=== PATIENT | female | born 1985 | race Caucasian/White ===

== ENCOUNTER 2023-08-17 11:28 | Day surgery (SDC) | payer MEDICAID, SELFPAY ==
[2023-08-17] VITALS (14 sets, daily range): BP systolic 99–133; BP diastolic 39–77; PULSE 69–83; RESP 10–26; TEMP 36.5–37.2; O2SAT 94–100; BMI 44.8
--- NOTE | 2023-08-17 11:48 | W.ED.GENAD ---
Discharge Plan Disposition Condition: Stable Discharge Details Chief Complaint: ForeignBody Attending Provider: Paz Guevara Primary Care Provider: Unknown,Unknown ED Provider: Marino Heck Discharge Instructions Activity:: Activity as Tolerated Diet:: As Tolerated Discharge Orders Discharge Orders: Discharge Order (Routine); Ordered 08/17/23 Ordered By: Paz Guevara Discharge Data Discharge Date/Time-TO BE ENTERED AT DEPARTURE: 08/17/23 13:15 Medical Decision Making 37yo female here after accidentally swallowing a toothppick with sensation of foreign body in her throat and difficulty speaking. I spoke with Dr. Guevara, stamps or coins salesperson general surgeon, discussed ED presentation and course. She will admit the patient to OR. Lab Data Lab results reviewed: Yes I reviewed the patient's lab results. Labs: Laboratory Tests Range/Units 08/17/23 11:52 WBC (4.4-10.8) 10^3/uL 9.26 RBC (3.93-5.22) 10^6/uL 5.38 H Hgb (11.2-15.7) g/dL 11.5 Hct (36.0-46.0) % 38.3 MCV (80-95) fL 71 L MCH (27.0-33.0) pg 21.4 L MCHC (32.0-36.0) % 30.0 L RDW (11.7-14.6) % 20.4 H Plt Count (130-400) 10^3/uL 398 MPV (8.0-11.0) fL 8.8 Immature Gran % 0.3 Neutrophils % 64.0 Lymphocytes % 29.9 Monocytes % 5.6 Eosinophils % 0.0 Basophils % 0.2 Nucleated RBC % (0.0-0.3) % 0.0 Absolute Neutrophils (1.2-6.7) 10^3/uL 5.92 Absolute Lymphocytes (1.2-3.4) 10^3/uL 2.77 Absolute Monocytes (0.1-0.8) 10^3/uL 0.52 Absolute Eosinophils (0.0-0.7) 10^3/uL 0.00 Absolute Basophils (0.0-0.2) 10^3/uL 0.02 RBC Morphology See Below Anisocytosis 2+ Microcytosis 2+ Sodium (136-145) mmol/L 139 Potassium (3.5-5.1) mmol/L 4.0 Chloride (98-107) mmol/L 104 Carbon Dioxide (21.0-32.0) mmol/L 27.9 Anion Gap (3-11) mmol/L 7.1 BUN (7-18) mg/dL 9 Creatinine (0.55-1.02) mg/dL 0.9 Est GFR (CKD-EPI 2020) (mL/min/1.73m2) 85.50 Glucose (74-106) mg/dL 87 Calcium (8.5-10.1) mg/dL 9.3 Total Bilirubin (0.2-1.0) mg/dL 0.2 AST (15-37) U/L 16 ALT (14-59) U/L 38 Alkaline Phosphatase (46-116) U/L 141 H Total Protein (6.4-8.2) g/dL 8.1 Albumin (3.4-5.0) g/dL 3.7 Serum HCG, Qual Negative HPI General Mode of arrival: ambulatory. Date/Time Provider Initiated Documentation: 08/17/23 11:45. Limitations to Documentation: no limitations. Information obtained by: patient. HPI Narrative: 37yo female here with sensation of foreign body in her throat. Patient notes that she was eating a sandwich and swallowed a toothpick that was in the sandwich. She has had pain in her throat sense this occurred. She coughed up blood. She notes throat hurts and she has difficulty speaking. Related Data Allergies Allergy/AdvReac Type Severity Reaction Status Date / Time Iodinated Contrast Media Allergy Unverified 08/17/23 11:34 General Stated Complaint: ForeignBody ESMER: 2 Review of Systems ENT Ears, Nose, Mouth, and Throat: Reports as per HPI PFSH All Active Problems Esophageal foreign body (Acute) Social History Smoking/Tobacco Use Status: Never Smoking risk assessment performed?: Yes Alcohol Intake: current Alcohol Intake frequency: holidays/special occasions only Exam Const General: cooperative HENMT Mouth: moist mucous membranes Throat: posterior oropharynx normal Eyes Conjunctivae: normal conjunctivae Sclera: normal sclerae Neck Neck: trachea midline and supple Resp Auscultation: clear to auscultation bilaterally, no rales, no rhonchi and no wheezes Cardio Rate: regular rate and not tachycardic Rhythm: regular rhythm GI Palpation: soft, not firm, no guarding, no masses, not rigid and nontender Course Vital Signs Vital signs: Vital Signs Pulse 75 08/17/23 11:32 Respiratory Rate 18 08/17/23 11:32 Blood Pressure 128/77 08/17/23 11:32 Pulse Oximetry 100 08/17/23 11:32 Pulse 75 08/17/23 11:32 Respiratory Rate 18 08/17/23 11:32 Blood Pressure 128/77 08/17/23 11:32 Blood Pressure Position Sitting 08/17/23 11:32 Pulse Oximetry 100 08/17/23 11:32 Oxygen Delivery Method Room Air 08/17/23 11:32 Oxygen Flow Rate 0 08/17/23 11:32
[2023-08-17] MEDS: Lactated Ringers 1,000 ML 125 ML IV (12:00)
[2023-08-17 12:04] LABS: Abs Immature Grans 0.03 10^3/uL (0.0-0.06); Absolute Basophil Count 0.02 10^3/uL (0.0-0.2); Absolute Lymphocyte Count 2.77 10^3/uL (1.2-3.4); Absolute Monocyte Count 0.52 10^3/uL (0.1-0.8); Absolute Neutrophil Count 5.92 10^3/uL (1.2-6.7); Basophils % 0.2; HCT 38.3 % (36.0-46.0); HGB 11.5 g/dL (11.2-15.7); Immature Grans % 0.3; Lymphocytes % 29.9; MCH 21.4 pg (27.0-33.0); MCV 71 fL (80-95); MPV 8.8 fL (8.0-11.0); Monocytes % 5.6; Platelet Count 398 10^3/uL (130-400); RBC 5.38 10^6/uL (3.93-5.22); RDW 20.4 % (11.7-14.6); RDW-SD 51.1 fL; WBC 9.26 10^3/uL (4.4-10.8)
[2023-08-17 12:16] LABS: Anisocytosis 2+; Diff Comment RBC Morph Reviewed; Microcytosis 2+
[2023-08-17] MEDS: HYDROmorphone 2 MG/ML SYR 0.5 MG IVP (12:18)
[2023-08-17 12:19] LABS: ALT 38 U/L (14-59); AST 16 U/L (15-37); Albumin 3.7 g/dL (3.4-5.0); Alkaline Phosphatase 141 U/L (46-116); Anion Gap 7.1 mmol/L (3-11); BUN 9 mg/dL (7-18); Bilirubin, Total 0.2 mg/dL (0.2-1.0); CO2 27.9 mmol/L (21.0-32.0); CREATININE 0.9 mg/dL (0.55-1.02); Calcium 9.3 mg/dL (8.5-10.1); Chloride 104 mmol/L (98-107); Glucose 87 mg/dL (74-106); Sodium 139 mmol/L (136-145); Total Protein 8.1 g/dL (6.4-8.2)
--- NOTE | 2023-08-17 12:30 | ANES.PREOP_ITS ---
General Info Date of Service Date Performed: 08/17/23 Height: 5 ft 8 in Weight: 133.81 kg Body Mass Index (BMI): 44.8 Surgical Procedure: Operation Date: 08/17/23 13:05 Proposed Procedure Side Surgeon p Gastroscopy/Removal Foreign Body Paz Guevara MD Meds Allergies and Home Medications Allergies Allergy/AdvReac Type Severity Reaction Status Date / Time Iodinated Contrast Media Allergy Unverified 08/17/23 11:34 Current Visit Medications: Current Medications Generic Name Dose Route Start Last Admin Trade Name Freq PRN Reason Stop Dose Admin Ringer's Solution 1,000 mls @ 125 mls/hr 08/17/23 12:00 08/17/23 12:00 IV 125 mls/hr INFUSION LANDON Administration IV Miscellaneous Supplies 1 each 08/17/23 12:00 Iv Access-Emergency Dept IV DIRECTED LANDON Sodium Chloride 0 ml 08/17/23 11:46 Normal Saline Flush 10 Ml Syr IVP PRN PRN Vital Signs and Lab Results Vital Signs Most Recent Vital Signs in EMR: Most Recent Vital Signs Pulse Resp BP Pulse Ox 75 18 128/77 100 08/17/23 11:32 08/17/23 11:32 08/17/23 11:32 08/17/23 11:32 Lab Results 08/17/23 11:52 08/17/23 11:52 Blood Type / Crossmatch: No Data to Display Complete Blood Count: White Blood Count 9.26 10^3/uL (4.4-10.8) 08/17/23 11:52 Red Blood Count 5.38 10^6/uL (3.93-5.22) H 08/17/23 11:52 Hemoglobin 11.5 g/dL (11.2-15.7) 08/17/23 11:52 Hematocrit 38.3 % (36.0-46.0) 08/17/23 11:52 Platelet Count 398 10^3/uL (130-400) 08/17/23 11:52 Complete Metabolic Panel: Sodium 139 mmol/L (136-145) 08/17/23 11:52 Potassium 4.0 mmol/L (3.5-5.1) 08/17/23 11:52 Chloride 104 mmol/L (98-107) 08/17/23 11:52 Carbon Dioxide 27.9 mmol/L (21.0-32.0) 08/17/23 11:52 BUN 9 mg/dL (7-18) 08/17/23 11:52 Creatinine 0.9 mg/dL (0.55-1.02) 08/17/23 11:52 Est GFR (CKD-EPI 2020) 85.50 (mL/min/1.73m2) 08/17/23 11:52 Calcium 9.3 mg/dL (8.5-10.1) 08/17/23 11:52 Albumin 3.7 g/dL (3.4-5.0) 08/17/23 11:52 Glucose 87 mg/dL (74-106) 08/17/23 11:52 Liver Function Panel: Alanine Aminotransferase (ALT/SGPT) 38 U/L (14-59) 08/17/23 11: 52 Aspartate Amino Transf (AST/SGOT) 16 U/L (15-37) 08/17/23 11:52 Coagulation Panel: No Data to Display Cardiac Panel: No Data to Display Arterial Blood Gas: No Data to Display Venous Blood Gas: No Data to Display Pancreas Panel: No Data to Display Thyroid Panel: No Data to Display Infectious Disease: No Data to Display Blood Cultures: No Data to Display Toxicology Panel: No Data to Display Panel: Serum HCG, Qualitative Pending 08/17/23 11:52 Anesthesia Assessment and Plan Anesthesia History Personal History: No History of Anesthesia Complications Family History: No Family History of Anesthesia Complications Exercise Tolerance Exercise Tolerance: Metabolic Equivalents<4 Pertinent Negatives Pertinent Negatives: No Symptoms of GERD Cardiac & Pulmonary Exam Cardiac Exam: Normal S1/S2 Heart Sounds Pulmonary Exam: Clear Bilateral Breath Sounds Implantable Cardiac Device Does patient have a Pacemaker or an ICD?: No Airway Exam Known Difficult Airway: No Mallampati Class: 2 Mouth Opening: Normal (> 3cm) Thyromental Distance: Greater than 3 cm Neck Range of Motion: Full ROM Neck Circumference: Thick Teeth Condition: Normal Dentition ASA Classification ASA Score: ASA 2 Emergency Case?: Yes NPO Status NPO Status: NPO Clears >2 hours, Solids >8 hours Status Status: Pt. refuses testing, she was counseled on anesthesia risks Anesthesia Plan Resuscitation Status: Full Code Anesthesia Technique: General Anesthesia Airway Planned: Endotracheal Tube Monitors Used: Standard Monitors
[2023-08-17] MEDS: Midazolam 2 MG/2 ML VIAL 1 MG IVP (12:31)
--- NOTE | 2023-08-17 12:31 | HPE_ITS ---
Date of service: 08/17/23 Time of Service: 12:32 Assessment and Plan Assessment and plan (1) Esophageal foreign body: Status: Acute Assessment and plan: Ms. Thomas is a pleasant 37-year-old female who was eating lunch today and when she took a bite of her sandwich and swallowed she ended up swallowing the toothpick. She feels like it stuck the top of her esophagus. She did cough when she first came into the ER and coughed up a little blood. She is quite anxious. I reviewed the procedure with her in detail, I explained the possible complications. I also explained to her that if the toothpick is laying horizontally and previous piercing her esophagus I will not be able to remove it and will have to send her down to [facility] to have it removed there. Risks, benefits and complications have been reviewed. Complications include but are not limited to bleeding, pain, perforation, sore throat, aspiration, and adverse reaction to the medications. Questions were entertained and answered to their satisfaction and they wished to proceed. No guarantees were given or implied. Patient had a good understanding of the procedure when he finished our conversation and she wishes to proceed. proceed with EGD and foreign body removal History of Present Illness Consults Consult date: 08/17/23 Requesting physician: Marino Heck Narrative: Ms. Thomas is a pleasant 37-year-old female who was eating lunch and when she took a bite of her sandwich she swallowed a toothpick. She feels like it is lodged in her throat. It hurts. She did cough a little bit when she first came to the emergency department and coughed up a little blood. She is overweight but otherwise healthy. She does not take any medications. Review of Systems Constitutional Constitutional: Denies fatigue, Denies fever(s), Denies headache(s) and Denies weight loss Eyes Eyes: Denies blurry vision and Denies change in vision ENT Ears, Nose, Mouth, and Throat: Reports dysphagia and Denies headache(s) Cardiovascular Cardiovascular: Denies chest pain, Denies chest pain at rest, Denies irregular heart rhythm, Denies palpitations, Denies dyspnea and Denies dyspnea on exertion Respiratory Respiratory: Denies cough, Denies dyspnea and Denies dyspnea on exertion Gastrointestinal Gastrointestinal: Reports as per HPI, Reports system reviewed and no additional complaints, except as documented and Reports dysphagia Genitourinary Genitourinary: Reports system reviewed and no additional complaints, except as documented Musculoskeletal Musculoskeletal: Reports system reviewed and no additional complaints, except as documented Integumentary/Breasts Skin/Breast: Reports system reviewed and no additional complaints, except as documented Neurologic Neurologic: Reports system reviewed and no additional complaints, except as documented and Denies headache(s) Psychiatric Psychiatric: Reports system reviewed and no additional complaints, except as documented Endocrine Endocrine: Denies fatigue and Denies palpitations Hematologic/Lymphatic Hematologic/Lymphatic: Reports system reviewed and no additional complaints, except as documented PFSH All Active Problems (Updated 08/17/23 @ 12:34 by Paz Guevara MD) Esophageal foreign body (Acute) Social History (Updated 08/17/23 @ 12:33 by Paz Guevara MD) Smoking/Tobacco Use Status: Never Smoking risk assessment performed?: Yes Alcohol Intake: current Alcohol Intake frequency: holidays/special occasions only Meds Allergies and Home Medications Allergies Allergy/AdvReac Type Severity Reaction Status Date / Time Iodinated Contrast Media Allergy Unverified 08/17/23 11:34 Exam Const General: cooperative and anxious Nutritional Appearance: obese Orientation: alert and oriented x3 HENMT Head: normocephalic and atraumatic Resp Effort & Inspection: normal respiratory effort Auscultation: clear to auscultation bilaterally Cardio Rate: regular rate Rhythm: regular rhythm GI Palpation: soft, no hepatosplenomegaly and nontender Results Labs 08/17/23 11:52 08/17/23 11:52 Labs: Laboratory Results - last 24 hr 08/17/23 08/17/23 11:52 11:52 WBC 9.26 RBC 5.38 H Hgb 11.5 Hct 38.3 MCV 71 L MCH 21.4 L MCHC 30.0 L RDW 20.4 H Plt Count 398 MPV 8.8 Immature Gran % 0.3 Neutrophils % 64.0 Lymphocytes % 29.9 Monocytes % 5.6 Eosinophils % 0.0 Basophils % 0.2 Nucleated RBC % 0.0 Absolute Neutrophils 5.92 Absolute Lymphocytes 2.77 Absolute Monocytes 0.52 Absolute Eosinophils 0.00 Absolute Basophils 0.02 RBC Morphology See Below Anisocytosis 2+ Microcytosis 2+ Sodium 139 Potassium 4.0 Chloride 104 Carbon Dioxide 27.9 Anion Gap 7.1 BUN 9 Creatinine 0.9 Est GFR (CKD-EPI 2020) 85.50 Glucose 87 Calcium 9.3 Total Bilirubin 0.2 AST 16 ALT 38 Alkaline Phosphatase 141 H Total Protein 8.1 Albumin 3.7 Last Vital Signs Pulse 75 08/17/23 11:32 Resp 18 08/17/23 11:32 BP 128/77 08/17/23 11:32 Pulse Ox 100 08/17/23 11:32 Time Spent Time spent with Patient: <40 minutes Time was spent: obtaining and/or reviewing separately otained hiistory, indepentently interpreting results and counseling the patient
[2023-08-17 13:01] LABS: HCG Qual (Serum) Negative
--- NOTE | 2023-08-17 13:32 | W.PM.ENDDOP ---
Date of service: 08/17/23 Time of Service: 13:33 Endoscopy Report DATE OF PROCEDURE: 08/17/23 PRE-OP DIAGNOSIS: foreign body POST-OP DIAGNOSIS: other (normal) PROCEDURE: EGD SURGEON: Paz Guevara ANESTHESIA TYPE: General LMA/ETT ESTIMATED BLOOD LOSS: 2 PATHOLOGY: none sent COMPLICATIONS: None DISPOSITION: PACU INDICATIONS: 37 year old female who states she swallowed a toothpick while eating lunch. Patient complains of a sore throat. The procedure was explained in detail as well as the possible risks, benefits and complications. Patient seemed to understand the procedure at the end of her conversation. She also had a good understanding of the potential complications and she wished to proceed. Risks, benefits and complications have been reviewed. Complications include but are not limited to bleeding, pain, perforation, sore throat, aspiration, and adverse reaction to the medications. Questions were entertained and answered to their satisfaction and they wished to proceed. No guarantees were given or implied. FINDINGS: normal duodenum, stomach and esophagus PROCEDURE DESCRIPTION: After informed consent was obtained the patient was take to the procedure room and placed in a supine position. Monitors were applied and a time out was done. The patients name, date of , procedure type, allergies to medications and metal in their body was reviewed. The patient was placed under general anesthesia and using a videoscope her oropharynx was inspected. We were unable to see a toothpick. She was then intubated without difficulty. Once the ET tube was secured, the gastroscope was advanced through the oropharynx which was grossly normal into the esophagus. The proximal, mid-and distal esophagus were normal. The scope was advanced into the stomach and through the pylorus into the 3rd portion of the duodenum. The duodenum was noted to be normal. The scope was retracted back into the stomach, there was no tooth pick identified. The scope was retroflexed. The cardia and fundus were noted to be normal. There was no toothpick in the Cardia or fundus. The scope was retracted back into the esophagus. The scope was very slowely retracted. Again no tooth pick was noted. The scope was removed. We again inspected her oropharynx with the videoscope. There was no foreign body. Anethesia then placed a bronchoscope down the trachea. No foreign bosy was identified. The patient was woken up, extubated and taken back to PACU in stable condition. Follow up: as needed
--- NOTE | 2023-08-17 13:54 | W.ANESPOSTOP ---
Postoperative Evaluation Date, Time and Location Date Performed: 08/17/23 Time Performed: 13:55 Patient Location: PACU Vital Signs Most Recent Imported Vital Signs: Most Recent Vital Signs Temp Pulse Resp BP Pulse Ox 37.2 C 72 13 115/41 L 94 08/17/23 13:48 08/17/23 13:48 08/17/23 13:48 08/17/23 13:48 08/17/23 13:48 Pain Score Most Recent Pain Score: Most Recent Pain Score Pain Level 6 08/17/23 12:18 Assessment Mental Status: Awake (Alert & Oriented to Patient Baseline) Airway and Respiratory Function: Patent airway with normal (patient baseline) respiratory exam Cardiovascular Function: Hemodynamically Stable Hydration Status: Adequately Hydrated Nausea & Vomiting: No Nausea or Vomiting Pain: Pt. Denies Any Pain Peripheral Nerve Block: Patient did not receive a nerve block
--- NOTE | 2023-08-17 14:15 | W.PM.DSUDISC ---
Date of service: 08/17/23 Time of Service: 15:04 Discharge Plan Disposition Patient Disposition: Home Condition: Stable Discharge Details Reason For Visit: foreign body Attending Provider: Paz Guevara Primary Care Provider: Unknown,Unknown Discharge Instructions Instructions: GI (Gastrointestinal) Soft Diet (DC) Additional Instructions: Findings: Normal esophagus, stomach and small intestine Other: recommend gargling with warm salt water 3-4 times a day use lozanges like you would for a sore throat Diet: recommend a soft diet for 24 hours Please call if you develop: fevers >101.5 Nausea or Vomiting Abdominal pain that is not transient Rectal bleeding that is more then a tbsp A hard abdomen and inability to pass gas DAY SURGERY UNIT POST ENDOSCOPY INSTRUCTIONS Instructions for everyone who is given Anesthesia: For your safety, please do the following for the next 24 Hours: a. Do not drive or operate dangerous equipment b. Do not drink alcohol beverages or use any recreational drugs for the first 24 hours or while taking pain medications. The medications in your body may have a reaction that can be dangerous. c. Do not make any important decisions or sign any important papers 1. Generally there are no restrictions on your activity after a day or so has gone by, but you may feel a bit fatigued for a few days. 2. After you arrive home you may have a light meal and return to a normal diet as you can tolerate it without feeling sick to your stomach. 3. After surgery, you may feel pain or discomfort. This should be only transient, but if it persists please contact your doctor. 4. If there are any questions regarding the findings of your procedure, please feel free to contact your doctor. 6. If you are unable to contact your doctor with a problem, contact the hospital at [phone]. 7. Continue all your regular medications unless directed otherwise. I understand the above instructions and have no questions. Signature of Patient or Responsible Adult Escort Date/Time Name of Responsible Adult Escort Signature of Nurse Date/Time Stand Alone Forms: Anesthesia Discharge Inst., Anes.Sugammadex Interaction, Katelin Wesley (DSU) Activity:: Activity as Tolerated Diet:: As Tolerated Discharge Orders Discharge Orders: Discharge Order (Routine); Ordered 08/17/23 Ordered By: Paz Guevara DS: Diagnosis Discharge Diagnosis (1) Esophageal foreign body: Status: Acute Asessment and Plan: Patient is seen and examined after their endoscopy. Patient has minimal sore throat. They have been able to tolerate liquids. They do not have any Nausea or Vomiting. They are not having any chest pain or shortness of breath. They have been able to pass gas and are not having any abdominal pain or distention. they have not vomited any blood. The vital signs have been stable-see nursing notes. We discussed findings on their endoscopy We reviewed the importance of lifestyle modifications- see diet recommendations We reviewed any new medications that the patient may be prescribed- see medicine reconciliation. Patient will either be sent a letter with the biopsy results or follow up in the office- see discharge instructions Patient was given explicit instructions for emergency follow up post endoscopy- see discharge instructions Patient verbalized understanding and was discharged in stable and satisfactory condition. See nursing notes.
--- NOTE | 2023-08-17 16:28 | W.PM.PROGNOT ---
Date of Service Date of service: 08/17/23 Time of Service: 16:28 Subjective Subjective Interval history since last seen: Per anesthesia guidelines patient needed to have a responsible adult be at home until her anesthesia wore off. We discussed this with the patient. We asked if we could speak with the neighbor who would be at home with her. We were unable to speak to that person. We spoke to her mother but her mother wasn't going to be the one at home with the patient. Patient didnt want to wait in the hospital. Patient left SDS and went to the ER entrance. Security was called who kept an I on the patient. Patient then walked to her car and drove away. State police was called. Objective Last Vital Signs Temp 97.7 F 08/17/23 15:04 Pulse 73 08/17/23 15:04 Resp 16 08/17/23 15:04 BP 100/63 08/17/23 15:04 Pulse Ox 94 08/17/23 15:04 Laboratory Results - last 24 hr 08/17/23 08/17/23 08/17/23 11:52 11:52 11:52 WBC 9.26 RBC 5.38 H Hgb 11.5 Hct 38.3 MCV 71 L MCH 21.4 L MCHC 30.0 L RDW 20.4 H Plt Count 398 MPV 8.8 Immature Gran % 0.3 Neutrophils % 64.0 Lymphocytes % 29.9 Monocytes % 5.6 Eosinophils % 0.0 Basophils % 0.2 Nucleated RBC % 0.0 Absolute Neutrophils 5.92 Absolute Lymphocytes 2.77 Absolute Monocytes 0.52 Absolute Eosinophils 0.00 Absolute Basophils 0.02 RBC Morphology See Below Anisocytosis 2+ Microcytosis 2+ Sodium 139 Potassium 4.0 Chloride 104 Carbon Dioxide 27.9 Anion Gap 7.1 BUN 9 Creatinine 0.9 Est GFR (CKD-EPI 2020) 85.50 Glucose 87 Calcium 9.3 Total Bilirubin 0.2 AST 16 ALT 38 Alkaline Phosphatase 141 H Total Protein 8.1 Albumin 3.7 Serum HCG, Qual Negative Time Spent with Patient Time Spent with Patient: <25 minutes Time was spent: counseling the patient
== END 2023-08-17 15:40 | disposition home or self-care (01) ==
LOC: ER 12:24 → SUR 13:16
PROVIDERS: Emergency Provider Student in an Organized Health Care Education/Training Program; Visit Provider Surgery
PROC: 0DC68ZZ Extirpation of Matter from Stomach, Via Natural or Artificial Opening Endoscopic (ICD-10-PCS; CPT 43247; principal; 2023-08-17 13:00)
DX: R07.0 Pain in throat (principal); R13.10 Dysphagia, unspecified; R04.2 Hemoptysis
CPT/HCPCS: 43235; 80053; 84703; 85025; J1170; J1885; J2001; J2250; J2704